=== PATIENT | female | born 1935 | race Caucasian/White ===

== ENCOUNTER 2018-08-27 19:00 | Outpatient (CLI) | payer MEDICARE ==
[2012-12-22 06:26] VITALS: BMI 22.3
[~2018-08-27 19:00] MED LIST: AMBIEN5 MG PO; ZOCOR20 MG PO
== END 2018-08-27 23:59 | disposition home or self-care (01) ==
LOC: D.MAMMO 19:00
PROVIDERS: ATTEND Family Medicine
DX: Z12.31 Encounter for screening mammogram for malignant neoplasm of breast (principal)

== ENCOUNTER 2019-02-07 21:04 | Emergency (ER) | payer MEDICARE ==
[~2019-02-07] VITALS: Ht 157.5 cm; Wt 60.9 kg
[2019-02-07] MEDS ORDERED: PROTONIX40 MG PO (21:09)
[2019-02-07] MEDS ORDERED: MULTI-DAY VITAM1 TAB PO (21:10)
[2019-02-07] MEDS ORDERED: COREG 3.1253.125 MG PO (21:10)
== END 2019-02-07 22:45 | disposition home or self-care (01) ==
LOC: D.ER 21:04
DX: B35.0 Tinea barbae and tinea capitis (principal)

== ENCOUNTER → 2019-04-14 12:39 | Outpatient (CLI) | payer MEDICARE ==
[2019-02-07 21:07] VITALS: BMI 24.5
[~2019-04-14 12:39] MED LIST changes: +COREG 3.1253.125 MG PO; +MULTI-DAY VITAM1 TAB PO; +PROTONIX40 MG PO
== END | disposition home or self-care (01) ==
LOC: D.HCCECHO 12:39
PROVIDERS: ATTEND Internal Medicine Cardiovascular Disease
DX: I27.20 Pulmonary hypertension, unspecified (principal)